=== PATIENT | male | born 2000 ===

== ENCOUNTER 2021-11-18 13:21 | Emergency (ER) | END 2021-11-18 13:29 | disposition left against medical advice (07) | LOC: COL.ER 13:21 | DX: Z00.00 Encounter for general adult medical examination without abnormal findings (principal) ==

== ENCOUNTER 2021-11-18 14:44 | Emergency (ER) | payer BC ==
[~2021-11-18] VITALS: Ht 175.3 cm; Wt 95.5 kg
[2021-11-18 15:09] VITALS: BP 139/80; PULSE 107; TEMP 98.6
== END 2021-11-18 15:12 | disposition left against medical advice (07) ==
LOC: COL.ER 14:44
DX: R52 Pain, unspecified (principal)